=== PATIENT | female | born 1975 | race Caucasian/White ===

== ENCOUNTER 2017-02-11 10:16 | Emergency (ER) | payer MEDICAID, SELFPAY ==
[~2017-02-11] VITALS: Ht 170.2 cm; Wt 92.4 kg
[2017-02-11 10:27] VITALS: BP 134/86
[2017-02-11 11:55] LABS: BLOOD UREA NITROGEN 16 mg/dL (7-18)
[2017-02-11 11:58] LABS: ASPARTATE AMINO TRANSFERASE 15 U/L (15-37)
[2017-02-11 12:29] LABS: HCG UR OBC PASS
== END 2017-02-11 12:25 | disposition home or self-care (01) ==
LOC: ED 12:02
DX: N30.00 Acute cystitis without hematuria (principal); R10.12 Left upper quadrant pain; R10.32 Left lower quadrant pain
CPT/HCPCS: 36415; 74000; 76770; 80053; 81001; 81025; 83690; 85025; 87086; 99285